=== PATIENT | male | born 1965 | race Caucasian/White ===

== ENCOUNTER → 2019-01-18 | Outpatient (CLI) | payer OTHER ==
--- NOTE | 2019-01-18 13:16 | RADIOLOGY REPORT (SQ) ---
EXAM DESCRIPTION: C SP 4 OR 5 VIEWS COMPLETED DATE/TIME: 01/18/2019 12:18 pm REASON FOR STUDY: CHRONIC LOW BACK PAIN;NECK PAIN M54.2 CERVICALGIA COMPARISON: None. NUMBER OF VIEWS: Five views including obliques. TECHNIQUE: AP, lateral, obliques and odontoid radiographic images acquired of the cervical spine. LIMITATIONS: None. FINDINGS: MINERALIZATION: Normal. ALIGNMENT: Normal. VERTEBRAE: Maintained height. No fracture or worrisome bone lesion. DISCS: Multilevel disc space narrowing with osteophytes. POSTERIOR ELEMENTS: Pedicles and facets are intact. No posterior arch defects. Facet arthropathy is present. FORAMINA: Narrowed at the levels of maximal disc and facet disease. HARDWARE: None in the spine. PARASPINAL SOFT TISSUES: Normal. OTHER: No other significant finding. IMPRESSION: SPONDYLOSIS WITHOUT BONE LESION OR FRACTURE. TECHNICAL DOCUMENTATION: JOB ID: [id number] [employer]- All Rights Reserved Reading location - IP/workstation name: [email or web address]
--- NOTE | 2019-01-18 13:17 | RADIOLOGY REPORT (SQ) ---
EXAM DESCRIPTION: KNEE RIGHT 4 VIEWS COMPLETED DATE/TIME: 01/18/2019 12:19 pm REASON FOR STUDY: PAIN IN BOTH KNEES M54.2 CERVICALGIA COMPARISON: None. NUMBER OF VIEWS: Four views. TECHNIQUE: AP, lateral, and both oblique radiographic images acquired of the right knee. LIMITATIONS: None. FINDINGS: MINERALIZATION: Normal. BONES: No acute fracture or dislocation. No worrisome bone lesions. No significant osteophytes. JOINT: No effusion. No chondrocalcinosis. OTHER: No other significant finding. IMPRESSION: NEGATIVE STUDY OF THE RIGHT KNEE. NO EXPLANATION FOR PAIN. TECHNICAL DOCUMENTATION: JOB ID: [id number] [employer]- All Rights Reserved Reading location - IP/workstation name: [email or web address]
--- NOTE | 2019-01-18 13:17 | RADIOLOGY REPORT (SQ) ---
EXAM DESCRIPTION: LUMBAR SPINE COMPLETE COMPLETED DATE/TIME: 01/18/2019 12:18 pm REASON FOR STUDY: CHRONIC LOW BACK PAIN;NECK PAIN M54.2 CERVICALGIA COMPARISON: None. NUMBER OF VIEWS: Five views including obliques. TECHNIQUE: AP, lateral, oblique, and sacral radiographic images acquired of the lumbar spine. LIMITATIONS: None. FINDINGS: MINERALIZATION: Normal. SEGMENTATION: Normal. No transitional anatomy. ALIGNMENT: Mild convex right scoliosis. VERTEBRAE: Maintained height. No fracture or worrisome bone lesion. DISCS: Multilevel disc space narrowing with osteophytes. POSTERIOR ELEMENTS: Pedicles and facets are intact. No pars defect or posterior arch defects. Facet arthropathy is present. HARDWARE: None in the spine. PARASPINAL SOFT TISSUES: Normal. PELVIS: Intact as visualized. No fractures or worrisome bone lesions. SI joints intact. OTHER: No other significant finding. IMPRESSION: SPONDYLOSIS WITHOUT BONE LESION OR FRACTURE. TECHNICAL DOCUMENTATION: JOB ID: [id number] [employer]- All Rights Reserved Reading location - IP/workstation name: [email or web address]
--- NOTE | 2019-01-18 13:18 | RADIOLOGY REPORT (SQ) ---
EXAM DESCRIPTION: SHOULDER LEFT 2 OR MORE VIEWS COMPLETED DATE/TIME: 01/18/2019 12:18 pm REASON FOR STUDY: RUDDY HIP PAIN; RT SHOULDER PAIN; IMPINGEMENT SYNDROME OF LEFT SHOULDER M54.2 CERVI CALGIA COMPARISON: None. NUMBER OF VIEWS: Three view. TECHNIQUE: Internal rotation, external rotation, and Y view images acquired of the left shoulder. LIMITATIONS: None. FINDINGS: MINERALIZATION: Normal. BONES: No acute fracture. No worrisome bone lesions. No significant osteophytes. GLENOHUMERAL JOINT: No significant findings. ACROMIOCLAVICULAR JOINT: No large osteophytes. SOFT TISSUES: No calcifications. VISUALIZED RIBS, SPINE, AND LUNG: No other significant finding. OTHER: No other significant finding. IMPRESSION: NEGATIVE STUDY OF THE LEFT SHOULDER. NO EXPLANATION FOR PAIN. TECHNICAL DOCUMENTATION: JOB ID: [id number] [employer]- All Rights Reserved Reading location - IP/workstation name: [email or web address]
--- NOTE | 2019-01-18 13:18 | RADIOLOGY REPORT (SQ) ---
EXAM DESCRIPTION: KNEE LEFT 4 VIEWS COMPLETED DATE/TIME: 01/18/2019 12:18 pm REASON FOR STUDY: PAIN IN BOTH KNEES M54.2 CERVICALGIA COMPARISON: None. NUMBER OF VIEWS: Four views. TECHNIQUE: AP, lateral, and both oblique radiographic images acquired of the left knee. LIMITATIONS: None. FINDINGS: MINERALIZATION: Normal. BONES: No acute fracture or dislocation. No worrisome bone lesions. No significant osteophytes. JOINT: No effusion. No chondrocalcinosis. OTHER: No other significant finding. IMPRESSION: NEGATIVE STUDY OF THE LEFT KNEE. NO EXPLANATION FOR PAIN. TECHNICAL DOCUMENTATION: JOB ID: [id number] [employer]- All Rights Reserved Reading location - IP/workstation name: [email or web address]
--- NOTE | 2019-01-18 13:19 | RADIOLOGY REPORT (SQ) ---
EXAM DESCRIPTION: SHOULDER RIGHT 2 OR MORE VIEWS COMPLETED DATE/TIME: 01/18/2019 12:28 pm REASON FOR STUDY: RUDDY HIP PAIN; RT SHOULDER PAIN; IMPINGEMENT SYNDROME OF LEFT SHOULDER M54.2 CERVI CALGIA COMPARISON: None. NUMBER OF VIEWS: Three views. TECHNIQUE: Internal rotation, external rotation, and Y view images acquired of the right shoulder. LIMITATIONS: None. FINDINGS: MINERALIZATION: Normal. BONES: No acute fracture. No worrisome bone lesions. No significant osteophytes. GLENOHUMERAL JOINT: No significant findings. ACROMIOCLAVICULAR JOINT: No large osteophytes. SOFT TISSUES: No calcifications. VISUALIZED RIBS, SPINE, AND LUNG: No other significant finding. OTHER: No other significant finding. IMPRESSION: NEGATIVE STUDY OF THE RIGHT SHOULDER. NO EXPLANATION FOR PAIN. TECHNICAL DOCUMENTATION: JOB ID: [id number] [employer]- All Rights Reserved Reading location - IP/workstation name: [email or web address]
--- NOTE | 2019-01-18 13:20 | RADIOLOGY REPORT (SQ) ---
EXAM DESCRIPTION: HIPS BILATERAL COMPLETED DATE/TIME: 01/18/2019 12:18 pm REASON FOR STUDY: RUDDY HIP PAIN; RT SHOULDER PAIN; IMPINGEMENT SYNDROME OF LEFT SHOULDER M54.2 CERVI CALGIA COMPARISON: None. NUMBER OF VIEWS: Three views TECHNIQUE: AP pelvis and additional frog-leg view of both hips. LIMITATIONS: None. FINDINGS: MINERALIZATION: Normal. HIPS: No acute fracture or dislocation. No worrisome bone lesions. PELVIS AND SACRUM: No acute fracture or dislocation. No worrisome bone lesions. PUBIS AND ISCHIUM: No acute fracture. LOWER LUMBAR SPINE: No significant findings as visualized. SOFT TISSUES: No findings. OTHER: No other significant finding. IMPRESSION: NEGATIVE STUDY OF THE PELVIS AND HIPS. TECHNICAL DOCUMENTATION: JOB ID: [id number] 2019 [employer]- All Rights Reserved Reading location - IP/workstation name: [email or web address]
== END ==
LOC: OD 11:39
PROVIDERS: ATTEND Family Medicine
DX: M54.2 Cervicalgia (principal); M25.562 Pain in left knee; M25.561 Pain in right knee
CPT/HCPCS: 72050; 72110; 73522